=== PATIENT | male | born 1955 | race African-American/Black ===

== ENCOUNTER 2016-06-18 11:54 | Emergency (ER) | payer OTHER ==
[2016-06-18 12:02] VITALS: BP 135/92; PULSE 66; TEMP 98.5; BMI 27.8
--- NOTE | 2016-06-18 12:31 | PDOC ---
Suture Removal/Wound Check HPI - History of Present Illness Chief Complaint: Suture/Staple Removal(Here) Stated Complaint: SUTURE REMOVAL Time Seen by Provider: 06/18/16 12:18 - Onset of Previous Treatment Comment:: 06/18/16 12:28 60-year-old male sustained a left hand laceration on 06/09, and is here today for suture removal He denies any redness discharge or infection, and offers no complaints Past History - Past Medical History Allergies/Adverse Reactions: Allergies No Known Allergies Allergy (Verified 06/18/16 12:24) Home Medications: Ambulatory Orders Ascorbate Calcium [Vitamin C] 500 mg PO DAILY 02/11/16 Cholecalciferol (Vitamin D3) [Vitamin D3] 2,000 unit PO DAILY 02/11/16 Enalapril Maleate [Vasotec] 5 mg PO DAILY 02/11/16 Hydrochlorothiazide [Hctz -] 25 mg PO DAILY 02/11/16 Ubidecarenone [Coq10] 50 mg PO DAILY 02/11/16 - Immunization History Tetanus Status: More than 5 years - Social History Smoking Status: Former smoker Number of Ciarettes Per Day: 0 Suture Removal/Wound Check PE - Physical Exam Comments: 06/18/16 12:30 There are [address] in the web space between the first and second fingers of the left hand The wound is healing well without evidence of infection Medical Decision Making - Medical Decision Making 06/18/16 12:30 The 2 sutures are removed without difficulty, and the wound remains intact No evidence of infection *DC/Admit/Observation/Transfer Diagnosis at time of Disposition: Encounter for removal of sutures - Patient Instructions Printed Discharge Instructions: DI for Suture Removal Additional Instructions: Covered for 24 hours Then you may resume your normal activities Return immediately if you worsen in any way
== END 2016-06-18 12:34 | disposition home or self-care (01) ==
LOC: FER 11:54
DX: Z48.02 Encounter for removal of sutures (principal)
CPT/HCPCS: 99282-25

== ENCOUNTER 2018-09-19 09:50 | Emergency (ER) | payer OTHER ==
[2018-09-19 09:58] VITALS: BP 140/87; PULSE 64; TEMP 98.3; BMI 27.8
--- NOTE | 2018-09-19 09:59 | PDOC ---
History of Present Illness - General Chief Complaint: Injury Stated Complaint: FELL HEAD INJURY Time Seen by Provider: 09/19/18 09:52 - History of Present Illness Initial Comments: 09/19/18 09:57 Mr. Clark is a 63 yo male w/ pmh of HTN who presents for evaluation after truck tail-gate fell on his L posterior head earlier today. Patient reports it fell as it was not secured as expected and struck him but did not cause any LOC. Complaining only of pain at impact site at this time. Not on any AC. The patient denies chest pain, shortness of breath, headache and dizziness. Denies fever, chills, nausea, vomit, diarrhea and constipation. Denies dysuria, frequency, urgency and hematuria. Past History - Past Medical History Allergies/Adverse Reactions: Allergies Allergy/AdvReac Type Severity Reaction Status Date / Time No Known Allergies Allergy Verified 09/19/18 09:51 Home Medications: Ambulatory Orders Enalapril Maleate [Vasotec] 5 mg PO DAILY 02/11/16 Hydrochlorothiazide [Hctz -] 25 mg PO DAILY 02/11/16 Anemia: No Asthma: No Cancer: Yes (PROSTATE) Cardiac Disorders: No CVA: No COPD: No CHF: No Dementia: No Diabetes: No GI Disorders: Yes (COLONIC POLYPS) Disorders: Yes (PROSTATE CANCER) HTN: Yes Hypercholesterolemia: No Liver Disease: No Seizures: No Thyroid Disease: No - Surgical History Abdominal Surgery: No Appendectomy: No Cardiac Surgery: No Cholecystectomy: No Lung Surgery: No Neurologic Surgery: No Orthopedic Surgery: No - Suicide/Smoking/Psychosocial Hx Smoking History: Former smoker Have you smoked in the past 12 months: No Number of Cigarettes Smoked Daily: 0 If you are a former smoker, when did you quit?: 2007 Hx Alcohol Use: No Drug/Substance Use Hx: No Substance Use Type: Alcohol Hx Substance Use Treatment: No Review of Systems - Review of Systems Comments:: 09/19/18 09:58 GENERAL/CONSTITUTIONAL: No fever or chills. No weakness. HEAD, EYES, EARS, NOSE AND THROAT: No change in vision. No ear pain or discharge. No sore throat. CARDIOVASCULAR: No chest pain or shortness of breath RESPIRATORY: No cough, wheezing, or hemoptysis. GASTROINTESTINAL: No nausea, vomiting, diarrhea or constipation. GENITOURINARY: No dysuria, frequency, or change in urination. MUSCULOSKELETAL: No joint or muscle swelling or pain. No neck or back pain. SKIN: No rash NEUROLOGIC: +Pain at impact site as reported. No vertigo, loss of consciousness , or change in strength/sensation. ENDOCRINE: No increased thirst. No abnormal weight change HEMATOLOGIC/LYMPHATIC: No anemia, easy bleeding, or history of blood clots. ALLERGIC/IMMUNOLOGIC: No hives or skin allergy. *Physical Exam - Physical Exam Comments: 09/19/18 09:59 GENERAL: Awake, alert, and fully oriented, in no acute distress HEAD: +Minor abbrasions w/ hematoma at L posterior head. Normocephalic EYES: PERRLA, EOMI, sclera anicteric, conjunctiva clear ENT: Auricles normal inspection, hearing grossly normal, nares patent, oropharynx clear without exudates. Moist mucosa NECK: Normal ROM, supple, no lymphadenopathy, JVD, or masses LUNGS: No distress, speaks full sentences, clear to auscultation bilaterally HEART: Regular rate and rhythm, normal S1 and S2, no murmurs, rubs or gallops, peripheral pulses normal and equal bilaterally. ABDOMEN: Soft, nontender, normoactive bowel sounds. No guarding, no rebound. No masses EXTREMITIES: Normal inspection, Normal range of motion, no edema. No clubbing or cyanosis. NEUROLOGICAL: Cranial nerves II through XII grossly intact. Normal speech, normal gait, no focal sensorimotor deficits SKIN: Warm, Dry, normal turgor, no rashes or lesions noted. Medical Decision Making - Medical Decision Making 09/19/18 11:04 Mr. Clark is a 63 yo male w/ pm as described who presents for evaluation of head injury. Patient evaluated for acute process with Head CT (negative). Patient well appearing with no concerning findings. Patient safe for follow-up outpatient; pain controlled w/ tylenol. No concern for acute process at this time. Discharging to home. *DC/Admit/Observation/Transfer Diagnosis at time of Disposition: Head injury Qualifiers: Encounter type: initial encounter Qualified Code(s): S09.90XA - Unspecified injury of head, initial encounter - Discharge Dispostion Disposition: HOME Condition at time of disposition: Stable - Referrals Referrals: Emery Carcamo MD [Primary Care Provider] - - Patient Instructions Printed Discharge Instructions: DI for Closed Head Injury Additional Instructions: You were evaluated today in the ER following your head injury. We performed a Head CT which was normal and controlled your pain with tylenol. We do not believe anything emergent is occurring at this time. Please follow-up with primary care provider later this week for further evaluation as needed. You may take over the counter motrin or tylenol per pain control. Return to ER if any confusion, altered mental status, excessive sleepiness, or other concerning symptoms. - Post Discharge Activity
[2018-09-19] MEDS ORDERED: ACETAMINOPHEN 500 MG TABLET (FP) PO ONE (10:03)
[2018-09-19] MEDS ORDERED: ACETAMINOPHEN 325 MG TABLET (FP) ONE (10:10)
--- NOTE | 2018-09-19 10:21 | PDOC ---
Attending Attestation - Resident Resident Name: Trevor Lucio - ED Attending Attestation I have performed the following: I have examined & evaluated the patient, The case was reviewed & discussed with the resident, I agree w/resident's findings & plan, Exceptions are as noted - HPI HPI: 09/19/18 10:19 63-year-old male with history of hypertension, prostate cancer presents with hit on head. Patient reported that the door had hit the posterior part of his head. No loss of conscious. No headache. Does not take any anticoagulation. Denies any neurological deficits. Came to the ER for an evaluation. - Physicial Exam PE: 09/19/18 10:19 GENERAL: Awake, alert, and fully oriented, in no acute distress HEAD: Small abrasion to superior posterior scalp, approx 2x2 cm. No lacerations appreciated. EYES: EOMI, sclera anicteric, conjunctiva clear ENT: Auricles normal inspection, hearing grossly normal, nares patent, oropharynx clear without exudates. Moist mucosa NECK: Normal ROM, supple, EXTREMITIES: Normal range of motion, no edema. No clubbing or cyanosis. No cords, erythema, or tenderness NEUROLOGICAL: Cranial nerves II through XII grossly intact. Normal speech, normal gait SKIN: Warm, Dry, normal turgor, no rashes or lesions noted. - Medical Decision Making 09/19/18 10:20 Vital Signs Temp Pulse Resp BP Pulse Ox 98.3 F 64 18 140/87 100 09/19/18 09:51 09/19/18 09:51 09/19/18 09:51 09/19/18 09:51 09/19/18 09:51 Patient is well-appearing. If head CT is negative, the patient to be discharged with outpatient follow-up and return precautions. Diagnosis: Head trauma. Concussion precautions to be given. 09/19/18 11:[address] reviewed. No acute findings.
== END 2018-09-19 11:13 | disposition home or self-care (01) ==
LOC: FER 09:50
DX: S09.90XA Unspecified injury of head, initial encounter (principal); Z87.891 Personal history of nicotine dependence; Z85.46 Personal history of malignant neoplasm of prostate; I10 Essential (primary) hypertension; W18.39XA Other fall on same level, initial encounter; Y93.89 Activity, other specified; Y92.89 Other specified places as the place of occurrence of the external cause
CPT/HCPCS: 70450-TC; 99282-25

== ENCOUNTER 2022-05-11 07:56 | Day surgery (SDC) | payer BC ==
[2022-05-07 13:51] VITALS: BMI 24.3
[2022-05-11 16:28] VITALS: TEMP 97.7
[2022-05-11 16:33] VITALS: BP 139/66; PULSE 47; RESP 17
== END 2022-05-11 11:30 | disposition home or self-care (01) ==
LOC: FASU 07:56
PROVIDERS: ATTEND Internal Medicine Gastroenterology
PROC: 0DBL8ZX Excision of Transverse Colon, Via Natural or Artificial Opening Endoscopic, Diagnostic (ICD-10-PCS; 2022-05-11)
PROC: 0DBN8ZX Excision of Sigmoid Colon, Via Natural or Artificial Opening Endoscopic, Diagnostic (ICD-10-PCS; principal; 2022-05-11 10:06)
DX: Z12.11 Encounter for screening for malignant neoplasm of colon (principal); D12.2 Benign neoplasm of ascending colon; D12.5 Benign neoplasm of sigmoid colon; K57.30 Diverticulosis of large intestine without perforation or abscess without bleeding; Z86.010 Personal history of colon polyps
CPT/HCPCS: 88305-TC